=== PATIENT | female | born 1970 | race Caucasian/White ===

== ENCOUNTER 2020-01-19 09:26 | Emergency (ER) | payer MEDICAID ==
[~2020-01-19] VITALS: Ht 170.2 cm; Wt 70.3 kg
[2020-01-19 09:51] VITALS: BP 110/59
== END 2020-01-19 10:35 | disposition home or self-care (01) ==
LOC: ER 09:26
DX: F41.9 Anxiety disorder, unspecified (principal); F32.9 Major depressive disorder, single episode, unspecified; Z76.0 Encounter for issue of repeat prescription

== ENCOUNTER 2020-02-26 21:03 | Emergency (ER) | payer SELFPAY ==
[~2020-02-26] VITALS: Ht 170.2 cm; Wt 70.3 kg
[2020-02-26] MEDS ORDERED: clonazePAM 0.5 MG TAB PO ONE (21:30)
[2020-02-26 23:20] VITALS: BP 112/35
[2020-02-26 23:20] LABS: Urine WBC None Seen /hpf (0 - 5)
[2020-02-26 23:26] LABS: Urine Bacteria NONE SEEN /hpf (None Seen); Urine Blood Negative /uL (Negative); Urine Specific Gravity 1.006 (1.001-1.035)
== END 2020-02-26 23:58 | disposition home or self-care (01) ==
LOC: ER 21:03
DX: F41.9 Anxiety disorder, unspecified (principal); F32.9 Major depressive disorder, single episode, unspecified; F43.10 Post-traumatic stress disorder, unspecified
CPT/HCPCS: 71045; 81001; 93005